=== PATIENT | female | born 1995 | race Caucasian/White ===

== ENCOUNTER 2018-07-10 10:21 | Outpatient (CLI) | payer OTHER ==
--- NOTE | 2018-07-10 11:04 | ULT ---
ULTRASOUND OBSTETRICAL EARLY: 07/10/2018 HISTORY: Vaginal bleeding in female. Evaluate anatomy. COMPARISON: None TECHNIQUE: Transabdominal transducer. Grayscale, color-flow, and spectral analysis. FINDINGS: Intrauterine gestational sac. number: [place] heart rate: 163 bpm [place]-rump length: 3.2 cm 10 W1D It is too early to evaluate anatomy. Small 2.5 x 1.5 x 1 cm hypoechoic lesion just to the left of the gestational sac, probably a small rendon bchorionic hemorrhage. No free fluid in the cul-de-sac. Right ovary: 3.1 x 1.9 x 2.2 cm Left ovary: 3.2 x 1.5 x 2.8 cm Maternal cervix closed IMPRESSION: 1. Single live first trimester intrauterine gestation estimated to be 10 weeks 1 day gestational age. 2. Probable small subchorionic hemorrhage.
== END 2018-07-10 10:22 | disposition home or self-care (01) ==
LOC: ULT 10:21
PROVIDERS: ATTEND Obstetrics & Gynecology
DX: Z34.01 Encounter for supervision of normal first pregnancy, first trimester (principal)
CPT/HCPCS: 76856; 93976

== ENCOUNTER 2018-12-03 23:36 | Day surgery (SDC) | payer OTHER ==
[2018-12-04 00:29] VITALS: BP 110/66; TEMP 97.9; BMI 35.6
--- NOTE | 2018-12-04 00:53 | PDOC.LDHP ---
Labor and Delivery H&P Chief complaint: abdominal pain HPI: Patient is a 23yo @ 31.2wks presenting after being evaluated at an outside ED for abdominal pain. She reports that the abdominal pain began around 8pm this evening, lasted for just over an hour, and then stopped on its own. She states that the pain felt like contractions felt during her last . She denies vaginal bleeding, loss of fluid, discharge. She reports that she feels the baby. Past Medical History: peptic ulcer - Physical Exam Vital signs reviewed and normal: yes General: NAD, resting Heart: RRR Lungs: CTAB Abdomen: NTTP Extremeties: no edema FHT: category 1 [place] contractions every: none - Assessment patient with abdominal pain - Plan Plan: observation in L&D -: Patient is a 23yo @ 31.2wks presenting after being evaluated at an outside ED for abdominal pain. #Abdominal pain, likely [place] Contraction -abdominal pain has ceased, felt like a contraction per patient -denied vaginal bleeding, loss of fluid, discharge -vss -reactive strip -04/03/high Dispo: reassurance and discharge with warning signs to return to ED Addendum - Attending - Attending Attestation Date/Time: 12/07/18 1413 I personally evaluated the patient and discussed the management with Dr. Medina and team on day of service. I agree with the History, Examination, Assessment and Plan documented above with any addition or exceptions noted below.
== END 2018-12-04 01:10 | disposition home or self-care (01) ==
LOC: L&D/OP 23:36
PROVIDERS: ATTEND Emergency Medicine
DX: O99.89 Other specified diseases and conditions complicating pregnancy, childbirth and the puerperium (principal); R10.9 Unspecified abdominal pain; Z3A.31 31 weeks gestation of pregnancy
CPT/HCPCS: 99283

== ENCOUNTER 2018-12-17 00:01 | Day surgery (SDC) | payer OTHER ==
[2018-12-17 00:36] VITALS: BMI 35.6
[2018-12-17] MEDS ORDERED: FLU VACC QS2019-20(6MOS UP)/PF 60 MCG/0.5 ML SYRINGE IM ONE (00:45)
--- NOTE | 2018-12-17 01:49 | PDOC.FPROB ---
Addendum entered and electronically signed by Michael Moser MD 12/17/18 02:12 : Transvaginal US revealed a cervical length > 4 cm. PTL appears unlikely. DC to home with strict return instructions if contractions return, loss of fluid, vaginal bleeding or loss of movement. Original Note: FMR OB H&P: HPI - History of Present Illness Chief Complaint: Contractions History of Present Illness: Mrs. Ruth Garza is a 23 y/o at 33.2W by 1st trimester US who presents to L&D due to contractions. She states that she began to feel intense, painful contractions yesterday evening Q2-4M, but that those contractions have since slowed down after presenting to L&D. She was evaluated in the [facility] ED and was told that her cervix was dilated to 1 cm, but she cannot remember the remainder of her physical exam. She denies any worrisome symptoms such as loss of fluid, bloody show or loss of movements, as well as severe headache, changes in vision, cough, chest pain, SOB, N/V/D, fevers, chills or night sweats. Primary Care Physician: None. FMR OB H&P: Current - Care : 2 Para: 1 Gestational age: 33.2W Dating Criteria: 1st Trimester US - OB Labs Blood type: O RH: unknown Antibody Screen: unknown HIV: unknown RPR: unknown HepBsAg: unknown Quad screen: unknown Urine drug screen: not done Gonorrhea: unknown Chlamydia: unknown GBS: unknown FMR OB H&P: History - Past Medical History PMH: PUD - OB History OB History: Sporadic care. Previous was unremarkable. - SALON MANAGER History SALON MANAGER History: None. - Surgical History Sx History: None. - Social History Social History: Previous EtOH and tobacco abuse. Denies x3 during current . - Family History Family History: Non-Contributory. FMR OB H&P: Medications - Current Allergies/Adverse Reactions: Allergies Allergy/AdvReac Type Severity Reaction Status Date / Time No Known Allergies Allergy Verified 12/17/18 00:36 FMR OB H&P: ROS - Review of Systems General: reports: fatigue. denies: fever/chills, weight/appetite/sleep changes , night sweats, recent trauma Eyes: denies: eye pain, vision changes, double vision ENT: denies: nasal congestion, rhinorrhea, frequent nose bleed, ear pain, ringing in ears, sore throat Cardiovascular: denies: chest pain, palpitation, edema Respiratory: denies: cough, congestion, shortness of breath Gastrointestinal: denies: nausea, vomiting, diarrhea Genitourinary (Female): reports: contractions. denies: dysuria, hematuria, vaginal discharge, vaginal pain, vaginal bleeding, vaginal pressure Musculoskeletal: denies: pain, swelling Neurologic: denies: numbness, syncope, weakness, loss of counsciousness, headache Hematologic/Lymphatic: denies: prolonged or excessive bleeding FMR OB H&P: Vital Signs - Maternal Vital signs: Hr (73) BP (11/54) RR (16) O2 (100%) - Heart Tones Baseline: 135 Variability: moderate Acceleration: present Deceleration: absent [place] contractions every: None FMR OB H&P: Physical Exam - Physical Exam General: NAD, awake, alert and oriented HEENT: normocephalic and atraumatic, PERRLA, EOMI, MMM, conjunctiva clear, no scleral icterus, grossly normal vision, grossly normal hearing, normal nasal mucosa, oropharynx clear, good dention Neck: supple, FROM, trachea midline, no LAD Chest: non-tender to palpation, no lesions Breast: symmetric, no nipple discharge Heart: RRR, normal S1/S2, no murmurs/rubs/gallops, pulses present, no edema General: CTAB, no respiratory distress, good air movement, no rales/rhonchi, no wheezing, no retractions Abdomen: gravid, non-tender, no masses Musculoskeletal: pulses present, FROM in all four extremities, no misalignment/ asymmetry, no atrophy Neurological: sensation to pain,touch and proprioception grossly normal, no clonus, no tremor, no focal deficit Skin: no rash, good tugor, no jaundice Lymphatic: no unusual bruising or bleeding, no purpura, no petechia, no LAD Psychiatric: intact recent and remote memory, good judgement and insight, normal mood and affect FMR OB H&P: Results - Imaging Imaging: Transvaginal US: Cervical Length > 4.2 cm FMR OB H&P: A/P Disposition: 1. Labor Check -Patient's history is concerning for contractions, but denies loss of fluid, vaginal bleeding or loss of movement -SVE in [facility] ED revealed minimal cervical dilation and effacement -Maternal / vital signs WNL -No evidence of contractions since admission -s/p 1L NS in [facility] ED - Fibronectin: Contraindicated -Transvaginal US: Pending Dispo: Observe on L&D for ~2H. Order transvaginal US to assess cervical length and risk of PTL. DC to home if PTL appears unlikely or if additional source of contractions is not identified. Expected LOS < 4H. Discussion: Date/Time: 12/17/18 0145 This H&P was discussed with who agrees with the above documentation and plan. ATTENDING NOTE: I have evaluated and seen the patient at bedside.
--- NOTE | 2018-12-17 01:56 | PDOC.EVN ---
Event Note - Event Note Event Note: OBGYN ATTENDING [facility] and [facility] care HPI: 23 yo at 33.2 , here form [facility] for irregular CTX. Was FT at that location, now CTX are almost gone. No trauma. No VB, no LOF. Past Medical: none Past Surgical: none Allergies: none Normotensive and afebrile FHTs 120s Assessment: 33 weeks PTL rule out: was FT at other ED Plan: Do not suspect PTL...await CX length See full H&P
--- NOTE | 2018-12-17 02:02 | PDOC.EVN ---
Event Note - Event Note Event Note: CX by sono: 5cm CL Placenta is posterior
--- NOTE | 2018-12-17 09:37 | ULT ---
LIMITED PELVIC ULTRASOUND: HISTORY: Contractions. Evaluate for cervical length and placenta. COMPARISON: None. TECHNIQUE: A limited OB ultrasound was performed. FINDINGS: The cervix appears to be closed and measures 5.6 cm. Vertex presentation. heart tones with a rate of 128 beats per minute. Posterior placenta. No previa. IMPRESSION: 1. Cervical length of 5.6 cm. 2. No evidence of previa. 3. Vertex presentation. POS: [facility]
== END 2018-12-17 02:15 | disposition home or self-care (01) ==
LOC: L&D/OP 00:01
PROVIDERS: ATTEND Obstetrics & Gynecology
DX: O47.03 False labor before 37 completed weeks of gestation, third trimester (principal); Z3A.33 33 weeks gestation of pregnancy
CPT/HCPCS: 76815